=== PATIENT | female | born 1970 | race Asian ===

== ENCOUNTER 2017-04-30 12:39 | Emergency (ER) | payer OTHER ==
--- NOTE | 2017-04-30 13:02 | EDPHY ---
H & P Stated Complaint: cough, ST Time Seen by Provider: 04/30/17 12:49 HPI/ROS: Chief Complaint: Cough, sore throat, fever, body aches HPI: 47-year-old woman who is visiting from [facility], she arrived in [place] 5 days ago. For the last 4 days she has had fevers, chills, body aches, sore throat and a dry nonproductive cough. She states she has been able to sleep last night secondary to the cough had the aches. No nausea or vomiting. No chest pain. Some mild shortness of breath associated with a cough. No leg pain or swelling. No pleuritic chest pain. No abdominal pain. ROS: 10 point Review of Systems is negative except as noted in the HPI. PMH: Denies Social History: No smoking, no alcohol, no recreational drug use Family History: non-contributory Physical Exam: Gen: Awake, Alert, No Distress HEENT: Nose: no rhinorrhea Eyes: PERRLA, EOMI Mouth: Moist mucosa mild oral pharyngeal erythema without edema or exudate , uvula is midline Neck: Supple, no JVD Chest: nontender, very mild diffuse expiratory wheeze with forced expiration, no focal rales or rhonchi Heart: S1, S2 normal, no murmur Abd: Soft, non-tender, no guarding Back: no CVA tenderness, no midline tenderness Ext: no edema, non-tender Skin: no rash Neuro: CN II-XII intact, Sensation grossly intact, Strength 5/5 in bilateral upper and lower extremities - Personal History LMP (Females 10-55): Unknown Current Tetanus/Diphtheria Vaccine: Unsure Current Tetanus Diphtheria and Acellular Pertussis (TDAP): Unsure - Medical/Surgical History Hx Asthma: No Hx Chronic Respiratory Disease: No Hx Diabetes: No Hx Cardiac Disease: No Hx Renal Disease: No Hx Cirrhosis: No Hx Alcoholism: No Hx HIV/AIDS: No Hx Splenectomy or Spleen Trauma: No 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 Vital signs are normal. Oxygen saturations are normal. She has a benign examination. She has not been taking acetaminophen or ibuprofen. I have recommended alternating acetaminophen with ibuprofen. Will give her an albuterol MDI with spacer for her dry productive cough. Will give her referral for outpatient follow-up. No indication for antibiotics at this time. Departure - Departure Disposition: Home, Routine, Self-Care Clinical Impression: Bronchitis, Viral URI Condition: Good Instructions: Acute Bronchitis (ED) Additional Instructions: Alternate acetaminophen (Paracetamol) (1000 mg) with ibuprofen (400 mg) every 4 hours as needed for fevers, chills, aches or pain. You may use the albuterol inhaler 2 puffs every 4 hr as needed for wheeze or cough. Always use the spacer with the inhaler. Follow up with primary care physician in 4-5 days if symptoms are not improving. Return to the emergency department for increasing cough, shortness of breath, uncontrolled fevers or chills, and or any other concerns. Referrals: Roni Lizama MD [Medical Doctor] - As per Instructions
[2017-04-30] MEDS ORDERED: ALBUTEROL INH PREPACK MDI TAKEHOME ONE (13:03)
[2017-04-30 14:02] VITALS: BP 125/86; PULSE 69; RESP 18; TEMP 98.4; O2SAT 97
== END 2017-04-30 14:02 | disposition home or self-care (01) ==
DX: J40 Bronchitis, not specified as acute or chronic (principal); J06.9 Acute upper respiratory infection, unspecified